=== PATIENT | female | born 1990 | race Caucasian/White ===

== ENCOUNTER 2020-03-28 09:19 | Emergency (ER) | payer SELFPAY ==
[2020-03-28 09:39] VITALS: BP 121/78
[2020-03-28 10:41] LABS: APPEARANCE,URINE CLEAR; BILIRUBIN,URINE NEGATIVE (NEGATIVE); COLOR,URINE COLORLESS; GLUCOSE, URINE NEGATIVE (NEGATIVE); KETONES,URINE NEGATIVE (NEGATIVE); PROTEIN,URINE NEGATIVE (NEGATIVE); URINE SPECIFIC GRAVITY 1.002; UROBILINOGEN,URINE NEGATIVE mg/dL (<2.0)
[2020-03-28 10:44] LABS: ABSOLUTE BASOPHILS # (AUTO) 0.1 10^3/uL (0.0-0.2); ABSOLUTE EOSINOPHILS # (AUTO) 0.1 10^3/uL (0.0-0.6); ABSOLUTE LYMPHOCYTES (AUTO) 3.2 10^3/uL (0.5-4.7); ABSOLUTE MONOCYTES (AUTO) 0.5 10^3/uL (0.1-1.4); ABSOLUTE NEUT (AUTO) 5.6 10^3/uL (1.7-8.2); BASOPHILS % (AUTO) 0.6 % (0-2); EOSINOPHILS % (AUTO) 0.7 % (0-6); HEMATOCRIT 42.4 % (36.0-47.0); HEMOGLOBIN 14.1 g/dL (12.0-15.5); LYMPHOCYTES % (AUTO) 33.8 % (13-45); MEAN CORPUSCULAR HEMOGLOBIN 28.9 pg (27.0-33.4); MEAN CORPUSCULAR HGB CONC 33.1 g/dL (32.0-36.0); MEAN CORPUSCULAR VOLUME 87 fl (80-97); MONOCYTES % (AUTO) 5.2 % (3-13); PLATELET COUNT 289 10^3/uL (150-450); RED BLOOD COUNT 4.86 10^6/uL (3.72-5.28); RED CELL DISTRIBUTION WIDTH 13.3 % (11.5-14.0); SEGMENTED NEUTROPHILS % (AUTO) 59.7 % (42-78); TOTAL CELLS COUNTED % (AUTO) 100 %; WHITE BLOOD COUNT 9.3 10^3/uL (4.0-10.5)
[2020-03-28 10:58] LABS: ALBUMIN 4.6 g/dL (3.5-5.0); ALKALINE PHOSPHATASE 99 U/L (38-126); ANION GAP 10 (5-19); ASPARTATE AMINO TRANSFERASE 23 U/L (14-36); BILIRUBIN,DIRECT 0.2 mg/dL (0.0-0.4); BILIRUBIN,TOTAL 0.4 mg/dL (0.2-1.3); BLOOD UREA NITROGEN 7 mg/dL (7-20); CALCIUM 9.9 mg/dL (8.4-10.2); CARBON DIOXIDE 27 mmol/L (22-30); CHLORIDE 106 mmol/L (98-107); GLUCOSE 94 mg/dL (75-110); TOTAL PROTEIN 7.9 g/dL (6.3-8.2)
--- NOTE | 2020-03-28 11:59 | EKG REPORT ---
SEVERITY:- OTHERWISE NORMAL ECG - SINUS TACHYCARDIA : Confirmed by: Navneet Kebede MD 28-Mar-2020 11:59:06
--- NOTE | 2020-03-28 12:34 | ER Document Report ---
ED General - General Chief Complaint: Palpitations Stated Complaint: HEART BEATING FAST Time Seen by Provider: 03/28/20 09:36 Primary Care Provider: KENYA DUMONT NP [Primary Care Provider] - Follow up as needed Mode of Arrival: Ambulatory Information source: Patient Notes: 29-year-old woman presents to the emergency department with a episode of rapid heartbeat, dizziness, lightheadedness while at work. She has a smart phone and noted that it beeped noting her heart rate was 160. She has never had a episode in the past. She does drink caffeine and has had a Pepsi prior to the onset. Otherwise healthy 29-year-old woman with no known medical conditions. She is brought to the emergency department from her worksite and by the time she is being seen now on the monitor reveals a heart rate of 101. She states that she feels like things are calming down. - Related Data Allergies/Adverse Reactions: No Known Allergies Allergy (Unverified 03/28/20 09:52) Past Medical History - Social History Smoking Status: Never Smoker Frequency of alcohol use: Rare Drug Abuse: None Family History: Reviewed & Not Pertinent Review of Systems - Review of Systems Notes: Constitutional: Negative for fever. HENT: Negative for sore throat. Eyes: Negative for visual changes. Cardiovascular: See HPI Respiratory: Negative for shortness of breath. Gastrointestinal: Negative for abdominal pain, vomiting or diarrhea. Genitourinary: Negative for dysuria. Musculoskeletal: Negative for back pain. Skin: Negative for rash. Neurological: Negative for headaches, weakness or numbness. 10 point ROS negative except as marked above and in HPI. Physical Exam - Vital signs Vitals: Temp Pulse Resp BP Pulse Ox 98.1 F 106 H 20 121/78 100 03/27/20 21:33 03/27/20 21:33 03/27/20 21:33 03/27/20 21:33 03/27/20 21:33 - Notes Notes: PHYSICAL EXAMINATION: Physical Exam: General: Well-nourished well-developed 72-year-old woman in no acute distress HEENT: NC/AT, pupils equal round and reactive to light, MM moist,nares clear, oropharynx clear, airway patent Neck: supple, no adenopathy, no masses. Good range of motion Lungs: clear, no wheezing, no rales no rhonchi CVS: Regular rate and rhythm no murmur gallop or rub Abdomen: Soft, active, nontender, no masses, no hepatosplenomegaly Ext: No edema, clubbing or cyanosis. Neuro: Alert and responsive, moving all 4 extremities on command, cranial nerves intact, no focal findings Skin: Intact no open lesions, no rash Course - Re-evaluation Re-evalutation: 03/28/20 12:31 29-year-old woman presenting with a episode of tachycardia with dizziness, lightheadedness and a smart phone pulse detection of 160 bpm. Presently she is stable heart rate is less than 90, review of her lab test including TSH are well within the normal range. The EKG in the emergency department did reveal sinus tachycardia without abnormal beats and normal intervals with KS, QRS and normal T wave. I explained to the patient that the episode which lasted all of 5 to 6 minutes may have been an episode of SVT, however, given the fact that we were not able to capture a rhythm the diagnosis will be palpitations and rapid heartbeat. I have suggested that she follow-up with her primary care doctor and consider Holter monitor if there is a recurrence of the episode. Being discharged home to follow-up as an outpatient. - Vital Signs Vital signs: Temp Pulse Resp BP Pulse Ox 98.1 F 106 H 21 H 121/78 97 03/27/20 21:33 03/27/20 21:33 03/28/20 12:00 03/27/20 21:33 03/28/20 12:00 - Laboratory Results Result Diagrams: 03/28/20 10:05 03/28/20 10:05 Critical Laboratory Results Reviewed: No Critical Results - Radiology Results Critical Radiology Results Reviewed: No Critical Results - EKG Interpretation by Va Rate: Tachycardia - EKG interpreted by Dr. French: Normal sinus rhythm, rate 100, KS interval 140 ms QT interval 35 6 ms, normal axis, no acute ST or T wave abnormalities, no ischemic findings, there is no old EKG for comparison. Interpretation normal EKG Discharge - Discharge Clinical Impression: Tachycardia, Palpitations Condition: Good Disposition: HOME, SELF-CARE Instructions: Palpitations (Irregular or Rapid Heartrate) ([facility]) Additional Instructions: You were seen in the emergency department today with an episode of rapid heartbeat which was not captured on a monitor. The episode may have represented SVT or another type of fast heartbeat. Please follow-up with your primary care doctor. If you have recurrent episode then a monitor should be considered for outpatient evaluation. If your symptoms are recurrent or worsening you may return to the emergency department for further evaluation and treatment HOME CARE INSTRUCTIONS & INFORMATION: Thank you for choosing us for your [facility] needs. We hope you're satisfied with the care you received. After you leave, you must properly care for your problem and, at the same time, observe its progress. Any condition can change. Some illnesses can change rapidly over hours or days. If your condition worsens, return to the Emergency Department or see your physician promptly. ABOUT YOUR X-RAYS AND EKG'S: If you had an EKG or X-rays taken, they have been read by the Emergency Physician. The X-rays and EKG's will also be read by a Radiologist or Global Logistics Analyst within 24 hours. If discrepancies are noted, you will be notified by telephone. Please be certain the ED has a correct telephone number & address where you can be reached. Also, realize that some fractures or abnormalities do not show up on initial X-rays. If your symptoms continue, see your physician. ABOUT YOUR LABORATORY TEST: If you had laboratory tests, the results have been reviewed by the Emergency Physician. Some test results (for example cultures) may not be available for several days. You will be contacted if any test result shows you need additional treatment. Please be certain the ED has a correct telephone number and address where you can be reached. ABOUT YOUR MEDICATIONS: You will receive instructions on how to take your medicine on the prescription label you receive. Additional information may be provided by the Pharmacy. If you have questions afterwards, call the ED for clarification or further instructions. Some prescribed medications may cause drowsiness. Do not perform tasks such as driving a car or operating machinery without consulting your Pharmacist. If you feel you need a refill of pain medication, your condition will need re-evaluation. Please do not call for a refill of any medication. ABOUT YOUR SIGNATURE: Signature of this document acknowledges to followin. Understanding that you received emergency treatment and that you may be released before al medical problems are known or treated. Please be certain the ED has a correct phone number & address where you can be reached. 2. Acknowledgement that you will arrange for follow-up care as recommended. 3. Authorization for the Emergency Physician to provide information to your follow-up Physician in order to maximize your care. AT ANY TIME, IF YOUR SYMPTOMS CHANGE SIGNIFICANTLY OR WORSEN OR YOU DEVELOP NEW SYMPTOMS, RETURN TO THE EMERGENCY DEPARTMENT IMMEDIATELY FOR RE-EVALUATION. OUR GOAL IS TO PROVIDE EXCELLENT MEDICAL CARE! WE HOPE THAT WE HAVE MET YOUR EXPECTATIONS DURING YOUR EMERGENCY DEPARTMENT VISIT AND THAT YOU FEEL YOU HAVE RECEIVED EXCELLENT CARE! Referrals: KENYA DUMONT, CREASING MACHINE OPERATOR [Primary Care Provider] - Follow up as needed
== END 2020-03-28 12:43 | disposition home or self-care (01) ==
LOC: ER 09:19
DX: R00.0 Tachycardia, unspecified (principal); R42 Dizziness and giddiness; R00.2 Palpitations
CPT/HCPCS: 36415; 80053; 81001; 81025; 84443; 85025; 93005; 93010; 99284